=== PATIENT | male | born 1945 | race Caucasian/White ===

== ENCOUNTER 2017-03-23 06:46 | Emergency (ER) | payer MEDICARE, BC ==
[2017-03-23 06:55] VITALS: BP 177/87
--- NOTE | 2017-03-23 07:04 | ERNOTE ---
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 06:56 impairment, ed, dry month Home Medications: HOME MEDICATIONS Amlodipine Besylate 10 mg PO DAILY 08/25/12 [Last Taken Unknown] Aspirin [Aspir 81] 81 mg PO DAILY 08/25/12 [Last Taken Unknown] Atenolol 50 mg PO BID 08/25/12 [Last Taken Unknown] Atorvastatin Calcium [Lipitor] 10 mg PO HS 08/25/12 [Last Taken Unknown] Hydrochlorothiazide 12.5 mg PO DAILY 08/25/12 [Last Taken Unknown] Levothyroxine Sodium [Levoxyl] 150 mcg PO DAILY 08/25/12 [Last Taken Unknown] Losartan Potassium [Cozaar] 100 mg PO DAILY 08/25/12 [Last Taken Unknown] [place] Oil/[place]-3 Fatty Acids [Fish Oil] 3 tab PO DAILY 08/25/12 [Last Taken Unknown] Vit A/Vit C/Vit E/Zinc/Copper [Preservision Tablet] 1 each PO DAILY 08/25/12 [ Last Taken Unknown] Centrum Silver Tablet 11/09/13 [Last Taken Unknown] Flaxseed Oil 11/09/13 [Last Taken Unknown] Gabapentin 05/16/16 [Last Taken Unknown] - History of Present Illness Narrative: Right eye pain and visual blurring since 0200. No known trauma. Thinks maybe he scratched his eye in his sleep. No welding or recent grinding. No hx of glaucoma. Review of Systems - Review of Systems Constitutional: Present: See HPI EYE: Present: see HPI, eye pain, blurred vision ENT: Present: no symptoms reported All Other Systems: All systems neg except as marked - Patient's Past Medical History Patient History - Cardiac/Respiratory: Hypertension Patient History - Cancer: Skin Patient History - Surgical Procedures: Total Hip Replacement Patient History - Other: None - Social History Living Situations: home Psych History: No pertinent hx Smoking Status: Never smoker Have you smoked in the past 12 months: No - Immunizations Immunizations Up to Date: Yes History of Influenza Vaccine: Yes Physical Exam - Physical Exam General Appearance: Present: wd/wn, alert, mild distress Eye Exam: Normal inspection: right - FAIRLY LARGE CENTRAL CORNEAL ABRASION NOTED WITH TETRACAINE AND FLOURESCEIN AND BLUE LIGHT AND OPTHALMASCOPE EXAM. EYE IRRIGATED WITH SALINE . , PERRL: bilateral, EOMI: bilateral, Sclera injection: right, Eye drainage: right - TEARING ED Progress - Vital Signs Patient's Vital Signs:: I have reviewed the patient's vital signs. Vital Signs: Vital Signs 03/23/17 06:51 Temperature 37.4 C Pulse Rate 71 Respiratory 20 Rate Blood Pressure 177/87 O2 Sat by Pulse 95 Oximetry - Progress/Reassessment Chief Complaint: Eye Injury/Trauma Plan - Plan Plan: gentamicin opth. oint. instilled to OD here and tube given pt. to use at home. Departure Clinical Impression: Pain, eye, right - Departure Disposition: Home Follow Up Needed Condition: Good Instructions: Corneal Abrasion, [id number] Additional Instructions: Use the gentamicin ophthalmic ointment , 1/4 inch , into the the right lower lid , 4 times a day for the next 5 days or until the eye is healed for 24 hours in a row. Call Saturday to the Ophthalmology clinic to get your eye rechecked. Cool compresses for comfort, do not rub your eye. You may take tylenol for pain if needed. Use sunglasses to protect your eye from the light as it will be more sensitive until the abrasion heals. Referrals: Derrell López MD [Primary Care Provider] - Lamonte Reed MD [Staff Physician] -
[2017-03-23] MEDS ORDERED: TETRACAINE HCL 150 DROP BTL ONE (07:10)
[2017-03-23] MEDS ORDERED: GENTAMICIN SULFATE 3.5 APPL TUBE RIGHTEYE ONE (07:18)
[2017-03-23] MEDS ORDERED: GENTAMICIN SULFATE 50 DROP BTL ONE (07:22)
[2017-03-23] MEDS ORDERED: GENTAMICIN SULFATE 3.5 APPL TUBE ONE (07:23)
== END 2017-03-23 07:51 | disposition home or self-care (01) ==
LOC: ER 06:46
DX: H57.11 Ocular pain, right eye (principal); Z85.828 Personal history of other malignant neoplasm of skin

== ENCOUNTER 2017-03-23 10:45 | Emergency (ER) | payer MEDICARE, BC ==
[2017-03-23 10:51] VITALS: BP 173/71
[2017-03-23] MEDS ORDERED: TETRACAINE HCL 150 DROP BTL ONE (11:01)
[2017-03-23] MEDS ORDERED: HYDROcodone/ACETAMINOPHEN 1 EACH TABLET PO ONE (11:03)
[2017-03-23] MEDS ORDERED: HYDROcodone/ACETAMINOPHEN 1 EACH TABLET ONE (11:03)
[2017-03-23] MEDS ORDERED: GENTAMICIN SULFATE 3.5 APPL TUBE ONE (11:18)
--- NOTE | 2017-03-23 11:26 | ERNOTE ---
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:50 impairment, ed, dry month Home Medications: HOME MEDICATIONS Amlodipine Besylate 10 mg PO DAILY 08/25/12 [Last Taken Unknown] Aspirin [Aspir 81] 81 mg PO DAILY 08/25/12 [Last Taken Unknown] Atenolol 50 mg PO BID 08/25/12 [Last Taken Unknown] Atorvastatin Calcium [Lipitor] 10 mg PO HS 08/25/12 [Last Taken Unknown] Hydrochlorothiazide 12.5 mg PO DAILY 08/25/12 [Last Taken Unknown] Levothyroxine Sodium [Levoxyl] 150 mcg PO DAILY 08/25/12 [Last Taken Unknown] Losartan Potassium [Cozaar] 100 mg PO DAILY 08/25/12 [Last Taken Unknown] [place] Oil/[place]-3 Fatty Acids [Fish Oil] 3 tab PO DAILY 08/25/12 [Last Taken Unknown] Vit A/Vit C/Vit E/Zinc/Copper [Preservision Tablet] 1 each PO DAILY 08/25/12 [ Last Taken Unknown] Centrum Silver Tablet 11/09/13 [Last Taken Unknown] Flaxseed Oil 11/09/13 [Last Taken Unknown] Gabapentin 05/16/16 [Last Taken Unknown] HYDROcodone/ACETAMINOPHEN [[place] 5-325] 1 - 2 tab PO QID PRN #12 tab 03/23/17 [ Last Taken Unknown] - History of Present Illness Narrative: Patient returns to the emergency room for worsening right eye pain. He has been applying the gentamicin ointment to his eye, however does not have an eye patch and complains of worsening lacrimation and pain to the right eye Review of Systems - Review of Systems EYE: Present: see HPI ENT: Present: no symptoms reported Respiratory: Present: no symptoms reported Cardiology: Present: no symptoms reported Gastrointestinal/Abdominal: Present: no symptoms reported Genitourinary: Present: no symptoms reported Musculoskeletal: Present: no symptoms reported Skin: Present: no symptoms reported - Patient's Past Medical History Patient History - Medical: No pertinent hx Patient History - Cardiac/Respiratory: Hypertension Patient History - Cancer: Skin Patient History - Surgical Procedures: Total Hip Replacement Patient History - Other: None - Social History Living Situations: home Psych History: No pertinent hx - Immunizations Immunizations Up to Date: Yes History of Influenza Vaccine: Yes Physical Exam - Physical Exam General Appearance: Present: wd/wn, alert, no apparent distress Eye Exam: Normal inspection: right - patient does have a corneal abrasion in the center of the right eye with a small epithelial flap. This eye was examined under fluorescein dye after the administration of tetracaine for local anesthesia. No foreign body was noted to be in the right eye. Ears, Nose, Throat: Present: normal ENT inspection Neck: Present: normal inspection, nontender Respiratory: Present: no respiratory distress ED Progress - Vital Signs Patient's Vital Signs:: I have reviewed the patient's vital signs. Vital Signs: Vital Signs 03/23/17 03/23/17 07:45 10:47 Temperature 37.4 C 37.4 C Pulse Rate 73 Respiratory 15 Rate Blood Pressure 177/87 173/71 O2 Sat by Pulse 94 Oximetry - Progress/Reassessment Chief Complaint: Eye Injury/Trauma Plan - Plan Plan: I attempted to contact an porcelain technician in [place] however was informed that there are no porcelain technician on-call today. I contacted Dr. cathy zuniga for at [facility] and he suggested an eye patch for 24 hours continued ointment application intermittent with artificial tears and follow-up on Saturday. the patient will be given [place] for pain Departure Clinical Impression: Corneal abrasion Qualifiers: Encounter type: initial encounter Laterality: right Qualified Code(s): S05.01XA - Injury of conjunctiva and corneal abrasion without foreign body, right eye, initial encounter - Departure Disposition: Home self-care Condition: Good Instructions: Corneal Abrasion, [id number] Referrals: Derrell López MD [Primary Care Provider] - Prescriptions: HYDROcodone/ACETAMINOPHEN [[place] 5-325] 1 - 2 tab PO QID PRN #12 tab PRN Reason: Pain
== END 2017-03-23 11:38 | disposition home or self-care (01) ==
LOC: ER 10:45
DX: S05.01XA Injury of conjunctiva and corneal abrasion without foreign body, right eye, initial encounter (principal)